=== PATIENT | female | born 1995 | race Caucasian/White ===

== ENCOUNTER → 2021-08-13 16:11 | Outpatient (CLI) | payer OTHER, SELFPAY ==
--- NOTE | ~2021-08-13 | XR_ITS ---
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 Partial sacralization of L5 on S1 on the right. Pedicles intact. Normal vertebral body alignm ent. Mild lumbar scoliosis. Vertebral body heights preserved. Moderate disc space narrowing at L5-S1, otherwise the disc spaces are maintained. Normal facets and posterior elements. IMPRESSION: Spinal level numbering anomaly as described above. Moderate degenerative disc disease at L5-S1. Reviewed, dictated and finalized at location K. IMPRESSION: Spinal level numbering anomaly as described above. Moderate degenerative disc d isease at L5-S1.
--- NOTE | ~2021-08-13 | XR_ITS ---
EXAM: XR thoracic spine 3V HISTORY: Low back pain COMPARISON: None available FINDINGS: Pedicles intact. Normal vertebral body alignment. Vertebral body heights preserved. Disc s paces maintained. Mild thoracic scoliosis. IMPRESSION: Mild scoliosis, otherwise normal thoracic spine radiograph findings. Reviewed, dictated and finalized at location K.
== END ==
PROVIDERS: PCP Physician Assistant; Visit Provider Physician Assistant
DX: M51.37 Other intervertebral disc degeneration, lumbosacral region (principal); M41.9 Scoliosis, unspecified
CPT/HCPCS: 72072; 72100